=== PATIENT | female | born 1995 | race Caucasian/White ===

== ENCOUNTER 2019-10-19 23:46 | Emergency (ER) | payer MEDICAID ==
[~2019-10-19] VITALS: Ht 167.6 cm; Wt 100.0 kg
[2019-10-20] MEDS ORDERED: SODIUM CHLORIDE 0.9% 1,000 ML IV ONE (01:04)
[2019-10-20] MEDS ORDERED: OLANZAPINE 10 MG/VIAL IM ONE (01:15)
[2019-10-20] MEDS ORDERED: LORAZEPAM 2MG/ML CPJ IV ONE (01:15)
[2019-10-20 02:52] LABS: HEMATOCRIT. 38.3 % (36.0-48.0); HEMOGLOBIN. 13.1 g/dL (12.0-16.0); MEAN CORPUSCULAR HEMOGLOBIN 29.8 pg (28.0-32.0); MEAN CORPUSCULAR VOLUME 87.6 fL (81.0-99.0); MEAN PLATELET VOLUME 7.5 fl (7.4-10.4); PLATELET 282 x1000/uL (130-400); RED BLOOD CELL COUNT 4.38 mill/uL (4.2-5.4); RED CELL DISTRIBUTION WIDTH 13.7 % (11.6-14.6)
[2019-10-20 03:00] LABS: CHLORIDE 106 mEq/L (98-107)
[2019-10-20 03:06] LABS: ETHANOL BLOOD < 10 mg/dL
[2019-10-20 03:07] LABS: HCG SCREEN NEGATIVE
[2019-10-20 03:15] VITALS: BP 90/42
[2019-10-20 07:59] LABS: PLATELET ESTIMATE NORMAL
== END 2019-10-20 04:35 | disposition home or self-care (01) ==
LOC: ER 23:46
DX: T65.91XA Toxic effect of unspecified substance, accidental (unintentional), initial encounter (principal); Y92.89 Other specified places as the place of occurrence of the external cause; G93.40 Encephalopathy, unspecified
CPT/HCPCS: 36415; 80053; 80307; 80320; 80329; 84703; 85025; 93005; 96361; 96372; 96374; 99284; J2060; J3490; J7030; G0480